=== PATIENT | female | born 1990 | race Caucasian/White ===

== ENCOUNTER 2021-06-25 09:52 | Emergency (ER) | payer MEDICAID, OTHER ==
[2021-06-25] MEDS ORDERED: Sodium Chloride 0.9% 10 ML Syringe FLUSH PRN (10:09)
[2021-06-25] MEDS ORDERED: Sodium Chloride 0.9% 1,000 ML IV ONE (10:09)
[2021-06-25] MEDS ORDERED: LORazepam 2 MG/ML SDV IVPUSH ONE (10:09)
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
[2021-06-25 10:47] VITALS: BP 119/84; PULSE 98
== END 2021-06-25 10:59 | disposition home or self-care (01) ==
LOC: VM.ED 09:52
DX: F41.9 Anxiety disorder, unspecified (principal); Z88.0 Allergy status to penicillin; Z88.1 Allergy status to other antibiotic agents; Z88.2 Allergy status to sulfonamides; Z91.013 Allergy to seafood
CPT/HCPCS: 93005; 93010; 96374; 99283-25; 99284; J2060; J7030